=== PATIENT | female | born 1970 | race Caucasian/White ===

== ENCOUNTER 2024-10-28 13:58 | Emergency (ER) | payer MEDICARE, MEDICAID, SELFPAY ==
[2024-10-28] VITALS (23 sets, daily range): BP systolic 150–199; BP diastolic 68–100; PULSE 61–86; RESP 20; TEMP 35.6; O2SAT 96–99; BMI 35.4
[2024-10-28] MEDS: LORazepam 0.5 MG TABLET PO ×2 (14:38→17:51)
[2024-10-28 14:51] LABS: Basophils Absolute Auto 0.03 K/uL (0.00-0.30); Basophils Percent Auto 0.3 % (0.0-3.0); Eosinophils Absolute Auto 0.03 K/uL (0.00-0.50); Eosinophils Percent Auto 0.3 % (0.0-7.0); Hemoglobin* 11.8 gm/dL (12.0-16.0); Immature Granulocytes Abs Auto 0.01 K/uL (0.00-0.30); Immature Granulocytes Pct Auto 0.1 %; Lymphocytes Percent Auto 23.4 % (20-44); Mean Corpuscular HGB Conc 32 gm/dL (32-36); Mean Corpuscular Hemoglobin 28 pg (26-34); Mean Corpuscular Volume 89 fL (80-100); Monocytes Percent Auto 5.4 % (0.0-11.0); Neutrophils Absolute Auto 6.61 K/uL (1.7-7.0); Neutrophils Percent Auto 70.5 % (42.0-72.0); Platelet Count* 375 K/uL (140-440); Red Blood Count 4.15 m/uL (4.00-5.20); White Blood Count* 9.39 K/uL (4.50-11.00)
[2024-10-28 14:53] LABS: Slide Review Reflex No
[2024-10-28 14:57] LABS: Troponin, Point-of-Care* 0.01 ng/ml (0.01-0.04)
--- NOTE | 2024-10-28 14:58 | ED.ALCOHOL ---
HPI - Alcohol General Date Seen: 10/28/24 Chief Complaint: Alcohol/Intoxication Stated Complaint: Detox from alcohol-sent by Time Seen by Provider: 10/28/24 14:16 Source: patient Mode of arrival: ambulatory Limitations: no limitations History of Present Illness HPI narrative: Patient is a 54-year-old female presenting to the emergency department for 0 call withdrawal concern. States she has been drinking heavily for the past year. Has been on and off drinking heavily since she was 13. States she had about 30 beers on new year' and then she of her sick care and tried to stop drinking for few days. States she then relapsed again and drink quite a bit more. States she last drink about 15 beers started yesterday around 10:00 and she is unsure when she finished them. She is concerned that her drinking well killer and she wants help stopping. States she has counseling that she is working the set up was not looking for inpatient detox right now. Denies thoughts of hurting herself or others. Does states she feels like her heart is racing and she feels diaphoretic. Is concerned all the drinking is hurting her heart. She states she does have chronic abdominal pain and does not seem much worse than normal. Has not been having any vomiting. Related Data Home Medications ?Medication ?Instructions ?Recorded ?Confirmed cyclobenzaprine 5 mg tablet 5 mg PO 3XD PRN 10/28/24 10/28/24 escitalopram oxalate 20 mg tablet 20 mg PO DAILY 10/28/24 10/28/24 lisinopril 20 mg tablet 20 mg PO DAILY 10/28/24 10/28/24 mirtazapine 15 mg tablet 15 mg PO QPM 10/28/24 10/28/24 nabumetone 750 mg tablet 750 mg PO BID 10/28/24 10/28/24 Previous Rx's ?Medication ?Instructions ?Recorded chlordiazepoxide HCl 25 mg capsule See Rx Instructions .Route 10/28/24 .COMPLEX #20 caps Allergies Allergy/AdvReac Type Severity Reaction Status Date / Time No Known Drug Allergies Allergy Verified 10/28/24 15:49 Review of Systems Status of ROS Reports: 10 or more systems reviewed and unremarkable except as noted in History and below PFSH PFSH Social History Smoking Status: Never smoker How often do you have a drink containing alcohol: 4 or more times a week How many standard drinks containing alcohol do you have on a typical day: 10 or more How often do you have six or more drinks on one occasion: Daily or almost daily AUDIT-C Alcohol total score: 12 Non-prescribed substance use: former substance user and marijuana (any form) Exam Narrative: Exam Narrative: Const: Well-nourished, Well-developed, in mild distress Eyes: PERRL, no conjunctival injection, and symmetrical lids HENT: Atraumatic external nose and ears. Moist mucous membranes. Neck: Symmetric, trachea midline, No thyromegaly. CVS: RRR, No murmurs or gallops. Peripheral pulses 2+ and equal in all extremities RESP: Unlabored respiratory effort. Clear to auscultation bilaterally. GI: Diffuse mild abdominal tenderness, Nondistended, No rebound or guarding. MSK:Extremities w/o deformity, Normal Active ROM Skin: Warm, Dry. No rashes or lesions. Neuro: Normal Muscle tone, No focal neurological deficits. Tremulous Psych: Awake, Alert, & Oriented x3. Appropriate mood and affect. Const: Vital Signs, click to edit/add: Vital Signs - 24 hr 10/28/24 14:01 10/28/24 14:58 10/28/24 15:00 Temperature 96.1 F L Pulse Rate 70 67 Pulse Rate [Pulse Oximeter] 86 Respiratory Rate 20 Blood Pressure Blood Pressure [Ri ght Upper Arm] 199/100 H Pulse Oximetry 98 97 97 Oxygen Delivery Me thod Room Air 10/28/24 15:15 10/28/24 15:53 10/28/24 15:54 Temperature Pulse Rate 70 77 Pulse Rate [Pulse Oximeter] Respiratory Rate Blood Pressure Blood Pressure [Ri ght Upper Arm] Pulse Oximetry 97 99 98 Oxygen Delivery Me thod Room Air 10/28/24 15:55 10/28/24 16:00 10/28/24 16:02 Temperature Pulse Rate 75 73 Pulse Rate [Pulse Oximeter] Respiratory Rate Blood Pressure 170/93 H 159/84 H Blood Pressure [Ri ght Upper Arm] Pulse Oximetry 97 98 Oxygen Delivery Me thod 10/28/24 16:03 10/28/24 16:19 10/28/24 16:30 Temperature Pulse Rate 76 75 71 Pulse Rate [Pulse Oximeter] Respiratory Rate Blood Pressure Blood Pressure [Ri ght Upper Arm] Pulse Oximetry 96 98 97 Oxygen Delivery Me thod 10/28/24 16:32 10/28/24 16:45 10/28/24 17:00 Temperature Pulse Rate 69 75 72 Pulse Rate [Pulse Oximeter] Respiratory Rate Blood Pressure 150/68 H Blood Pressure [Ri ght Upper Arm] Pulse Oximetry 97 97 97 Oxygen Delivery Me thod 10/28/24 17:02 10/28/24 17:03 10/28/24 17:15 Temperature Pulse Rate 75 72 70 Pulse Rate [Pulse Oximeter] Respiratory Rate Blood Pressure 153/85 H Blood Pressure [Ri ght Upper Arm] Pulse Oximetry 97 97 98 Oxygen Delivery Me thod Course Vital Signs Vital signs: Initial Vital Signs Temperature 96.1 F L 10/28/24 14:01 Temperature Source Temporal Artery Scan 10/28/24 14:01 Pulse Rate 86 10/28/24 14:01 Respiratory Rate 20 10/28/24 14:01 Blood Pressure 199/100 H 10/28/24 14:01 Blood Pressure Mean 133 H 10/28/24 14:01 Blood Pressure Position Sitting 10/28/24 14:01 Pulse Oximetry 98 10/28/24 14:01 Oxygen Delivery Method Room Air 10/28/24 14:01 Vital Signs Temperature 96.1 F L 10/28/24 14:01 Pulse Rate 86 10/28/24 14:01 Respiratory Rate 20 10/28/24 14:01 Blood Pressure 199/100 H 10/28/24 14:01 Pulse Oximetry 98 10/28/24 14:01 Oxygen Delivery Method Room Air 10/28/24 14:01 Temperature 96.1 F L 10/28/24 14:01 Pulse Rate 70 10/28/24 17:15 Respiratory Rate 20 10/28/24 14:01 Blood Pressure 153/85 H 10/28/24 17:02 Pulse Oximetry 98 10/28/24 17:15 Oxygen Delivery Method Room Air 10/28/24 15:53 Medications Administered Medications: Discontinued Medications Generic Name Dose Route Start Last Admin Trade Name Freq PRN Reason Stop Dose Admin Lorazepam 0.5 mg 10/28/24 14:32 10/28/24 14:38 Lorazepam 0.5 Mg Tablet PO 10/28/24 14:33 0.5 mg ONCE ONE Administration Thiamine HCl 100 mg 10/28/24 15:03 10/28/24 15:52 Thiamine 100 Mg Tablet PO 10/28/24 15:04 100 mg ONCE ONE Administration MDM - Alcohol MDM Narrative Medical decision making narrative: Patient is a 54-year-old female presenting to emergency department for alcohol withdrawal concerns. Her CIWA score in triage was 12. She does not want inpatient treatment is looking to set up outpatient treatment. She is here today to make sure there is nothing else wrong with her and hopefully to get something to help her with her withdrawal symptoms. While she was here or give her a dose of Ativan. She is hypertensive but is not tachycardic. Is not having hallucinations. Will order a EKG, troponin, CBC, CMP, magnesium, COVID/flu/RSV. Due to the abdominal discomfort have a kink and will do CT scan with IV contrast. Lab work shows no concerning abnormalities. EKG shows no concerning findings. Her blood pressure did improve after the Ativan she states she is feeling much better. She is not feeling as anxious anymore. Her CIWA score has stayed below 20. She still states she does not want to go to detox. Is feeling well. 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 No signs of UTI in her urine. There is also moderate hepatomegaly and hepatic steatosis with out any focal abnormality. She is feeling better at this time. I will discharge her home with Librium. Last again she was not patient detox. She does not. Her she does not appear to be going through severe withdrawals at this time. She is agreeable to this plan. I did explain the importance of her to follow up closely outpatient with her treatment facility and to return for any sign of worsening withdrawals. She states she understands Lab Data Labs: Lab Results 10/28/24 10/28/24 Range/Units 14:43 16:20 WBC 9.39 (4.50-11.00) K/uL RBC 4.15 (4.00-5.20) m/uL Hgb 11.8 L (12.0-16.0) gm/dL Hct 37.0 (33.0-51.0) % MCV 89 (80-100) fL MCH 28 (26-34) pg MCHC 32 (32-36) gm/dL RDW Coeff of Adonis 16.0 H (11.5-15.5) % Plt Count 375 (140-440) K/uL Neut % (Auto) 70.5 (42.0-72.0) % Lymph % (Auto) 23.4 (20-44) % Garrett % (Auto) 5.4 (0.0-11.0) % Eos % (Auto) 0.3 (0.0-7.0) % Baso % (Auto) 0.3 (0.0-3.0) % Neut # (Auto) 6.61 (1.7-7.0) K/uL Lymph # (Auto) 2.20 (0.90-2.90) K/uL Garrett # (Auto) 0.50 (0.00-0.90) K/UL Eos # (Auto) 0.03 (0.00-0.50) K/uL Baso # (Auto) 0.03 (0.00-0.30) K/uL Abs Immat Gran (auto) 0.01 (0.00-0.30) K/uL Imm/Tot Granulo (auto) 0.1 % Sodium 136 (135-149) mmol/L Potassium 3.9 (3.6-5.1) mmol/L Chloride 104 (96-114) mmol/L Carbon Dioxide 25 (20-32) mmol/L Anion Gap 7 (7-15) mEq/L BUN 14 (7-30) mg/dL Creatinine 0.8 (0.5-1.5) mg/dL Estimated Creat Clear 65.73 Estimated GFR 87 ml/min Glucose 105 (60-115) mg/dL Calcium 9.0 (8.4-10.6) mg/dL Magnesium 1.9 (1.5-2.6) mg/dL Total Bilirubin 0.4 (0.1-1.5) mg/dL AST 28 (12-35) U/L ALT 19 (4-35) U/L Alkaline Phosphatase 87 (40-150) U/L Total Protein 7.4 (6.0-8.3) g/dL Albumin 4.4 (3.3-5.0) g/dL Urine Color Yellow (Yellow) Urine Appearance Slightly Cloudy A (Clear) Urine pH 5.5 (5.0-8.5) Ur Specific [place] 1.010 (1.000-1.030) Urine Protein Negative (Negative) Urine Glucose (UA) Negative (Negative) Urine Ketones Negative (Negative) Urine Blood Negative (Negative) Urine Nitrite Negative (Negative) Urine Bilirubin Negative (Negative) Urine Urobilinogen 0.2 (0.2-1.0) Ur Leukocyte Esterase Negative (Negative) Urine RBC 0-2 (0-2) Urine WBC 0-2 (0-5) Ur Squamous Epith Cells None (None-Few) Urine Bacteria None (None) SARS-CoV-2 (PCR) Negative SARS-CoV-2 (Negative) Influenza Type A (PCR) Negative PCR FLU A (Negative) Influenza Type B (PCR) Negative PCR FLU B (Negative) RSV (PCR) Negative PCR RSV (Negative) POC Troponin I 0.01 (0.01-0.04) ng/ml Imaging Data CT scan abdomen and pelvis: Attestation: I have reviewed the pertinent imaging results. Radiologist's impression: 1. Moderate hepatomegaly and hepatic steatosis without focal abnormality. 2. 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 Correlate with urinalysis and clinical symptoms. 3. 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 Otherwise, no evidence of obvious complication or acute intra-abdominal abnormality. Please note that all CT scans at this facility use dose modulation, iterative reconstruction, and/or weight-based dosing when appropriate to reduce radiation dose to as low as reasonably achievable. Dictated by Benjie Sue MD @ 10/28/2024 3:55:15 PM ECG Data Attestation: I personally reviewed and interpreted this ECG as follows: Prior ECG tracings: not available for review Interpretation: Normal sinus rhythm with a rate of 78 beats per minute, normal intervals, axis, no ST or T-wave abnormalities Discharge Plan Discharge Clinical Impression: Hepatomegaly Alcohol withdrawal Qualifiers: Complication of substance-induced condition: uncomplicated Qualified Code(s): F10.930 - Alcohol use, unspecified with withdrawal, uncomplicated Patient Disposition: Home, Self-Care Condition: Improved Instructions: Alcohol Withdrawal (DC) Additional Instructions: Alcohol withdrawal is very dangerous and it is important that you return if he starts developing any symptoms such as hallucinations, shortness of breath, chest pain, lightheadedness or any thing else that you find concerning. Is also important that you stop drinking alcohol as a you are starting to develop liver disease but is early enough that this can be reversible. Make sure you follow-up outpatient like you previously stated you will. Use the Librium as directed. Prescriptions: New chlordiazepoxide HCl 25 mg capsule See Rx Instructions .ROUTE .COMPLEX Qty: 20 0RF Rx Instructions: 50mg of chlordiazepoxide every 8 hours for two days, then decrease to 25mg every 8 hours for another two days followed by 25mg as needed. No Action cyclobenzaprine 5 mg tablet 5 mg PO 3XD PRN escitalopram oxalate 20 mg tablet 20 mg PO DAILY nabumetone 750 mg tablet 750 mg PO BID mirtazapine 15 mg tablet 15 mg PO QPM lisinopril 20 mg tablet 20 mg PO DAILY Follow Up/Referrals: Provider,Not a Local [Primary Care Provider] - Stand Alone Forms: MyHealth Info Instructions
--- NOTE | 2024-10-28 15:00 | CRLHL7_ITS ---
For Patients: As a result of the 21st Century Cures Act, medical imaging exams and procedure reports are released immediately into your electronic medical record. You may view this report before your referring provider. If you have questions, please contact your health care provider. Indication: Diffuse abdominal pain, history of alcoholism and gastric bypass Technique: Volumetric multidetector CT images of the abdomen and pelvis were obtained after the administration of intravenous contrast. 108 cc Isovue 370 low osmolar intravenous contrast Comparison: None available. Findings: The lung bases are clear. There is mild hepatic steatosis and hepatomegaly. No focal abnormality is appreciated. The portal vein is patent. The gallbladder is unremarkable without evidence of radiopaque calculus. There is no significant common biliary ductal dilatation or abrupt cut off. There is likely sequela of prior splenic injury with minimal splenic cyst. Otherwise the spleen is unremarkable. Postoperative changes of the stomach status post gastric bypass are appreciated. The pancreas is normal in enhancement without significant atrophy. The adrenal glands are unremarkable. Demonstration of renal cortical defects of the right kidney which may represent sequela of prior renal injury. Suggestion of minimal streaky corticomedullary differentiation of the inferior pole of the right kidney and left kidney without significant perinephric stranding. No evidence of obstructive uropathy. There is moderate stool seen throughout the colon which is otherwise decompressed. No significant colonic diverticulosis or pericolonic inflammation. The appendix is unremarkable. There is no significant mesenteric, retroperitoneal, or pelvic sidewall lymph nodes. The aorta is nonaneurysmal with minimal scattered atherosclerotic calcification. The pelvic viscera is somewhat limited in evaluation due to beam hardening artifact from right hip arthroplasty. Otherwise, the hollow and solid pelvic viscera are grossly within normal limits. There is no free fluid or free air. The anterior abdominal wall is intact without significant hernias. The lumbar vertebral body heights are grossly maintained with mild to moderate multilevel degenerative disc disease with disc height loss and marginal osteophyte formation. There is moderate facet arthrosis. Impression: 1. Moderate hepatomegaly and hepatic steatosis without focal abnormality. 2. 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 Correlate with urinalysis and clinical symptoms. 3. 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 Otherwise, no evidence of obvious complication or acute intra-abdominal abnormality. Please note that all CT scans at this facility use dose modulation, iterative reconstruction, and/or weight-based dosing when appropriate to reduce radiation dose to as low as reasonably achievable. Dictated by Benjie Sue MD @ 10/28/2024 3:55:15 PM (Electronically Signed)
[2024-10-28 15:27] LABS: PCR FLU A Negative PCR FLU A (Negative); PCR FLU B Negative PCR FLU B (Negative); PCR RSV Negative PCR RSV (Negative); SARS PCR* Negative SARS-CoV-2 (Negative)
[2024-10-28] MEDS: THIAMINE 100 MG TABLET PO (15:52)
[2024-10-28 16:05] LABS: Albumin* 4.4 g/dL (3.3-5.0); Chloride* 104 mmol/L (96-114); Potassium* 3.9 mmol/L (3.6-5.1); Sodium* 136 mmol/L (135-149)
[2024-10-28 16:07] LABS: Anion Gap 7 mEq/L (7-15); Aspartate Amino Transferase* 28 U/L (12-35); Bilirubin Total* 0.4 mg/dL (0.1-1.5); Carbon Dioxide* 25 mmol/L (20-32); Creatinine* 0.8 mg/dL (0.5-1.5); Est. Creatinine Clearance* 65.73; Estimated Glomerular Filt Rate 87 ml/min
[2024-10-28 16:08] LABS: Alanine Aminotransferase* 19 U/L (4-35); Alkaline Phosphatase* 87 U/L (40-150); Blood Urea Nitrogen* 14 mg/dL (7-30); Glucose* 105 mg/dL (60-115); Magnesium* 1.9 mg/dL (1.5-2.6); Total Protein* 7.4 g/dL (6.0-8.3)
[2024-10-28 16:29] LABS: Appearance Urine Slightly Cloudy (Clear); Bilirubin Urine Negative (Negative); Blood Urine Negative (Negative); Color Urine Yellow (Yellow); Glucose Urine Negative (Negative); Ketones Urine Negative (Negative); Leukocyte Esterase Urine Negative (Negative); Nitrite Urine Negative (Negative); Protein Urine Negative (Negative); Urobilinogen Urine 0.2 (0.2-1.0); pH Urine 5.5 (5.0-8.5)
[2024-10-28 17:04] LABS: RBC Urine 0-2 (0-2); WBC Urine 0-2 (0-5)
== END 2024-10-28 18:20 | disposition home or self-care (01) ==
PROVIDERS: Emergency Provider Student in an Organized Health Care Education/Training Program
DX: R16.0 Hepatomegaly, not elsewhere classified (principal); F10.239 Alcohol dependence with withdrawal, unspecified
CPT/HCPCS: 36415; 74177; 80053; 81001; 83735; 84484; 85025; 87631; 93005; 99284; 99285; A9270; Q9967

== ENCOUNTER 2025-03-23 09:00 | Outpatient (CLI) | payer MEDICARE, OTHER, SELFPAY | END 2025-03-23 09:01 | disposition home or self-care (01) | PROVIDERS: PCP Family Medicine; Visit Provider Family Medicine | DX: M53.3 Sacrococcygeal disorders, not elsewhere classified (principal) | CPT/HCPCS: 27096; J0702; Q9966 ==